=== PATIENT | male | born 1950 | race Caucasian/White ===

== ENCOUNTER 2021-04-15 10:20 | Day surgery (SDC) | payer MEDICARE, MEDICAID ==
[~2021-04-15] VITALS: Ht 177.8 cm; Wt 94.6 kg
[2021-04-15 10:48] VITALS: BP 153/78; PULSE 85; TEMP 98.9
[2021-04-15] MEDS ORDERED: PRINZIDE 25 MG-1 TAB PO (11:06)
[2021-04-15] MEDS ORDERED: LIPITOR 80MG80 MG PO (11:06)
[2021-04-15] MEDS ORDERED: MOTRIN 600600 MG/TAB PO (14:41)
[2021-04-15] MEDS ORDERED: NORCO 325 MG-51 TAB PO (14:42)
[2021-04-15 15:20] VITALS: BP 141/74; PULSE 63; TEMP 97.4
--- NOTE | 2021-04-15 15:20 | NUR ---
The patient arrived back to [place] [facility] from the recovery room at this time. The patient appears alert and oriented and denies any pain or nausea at this time. The patien agrees to try some cran/apple juice at this time. The patient denies wanting anything to eat at this time. The patient has lap sites to his abdomen that are covered with surgical glue and without redness or edema. The patient's friend, Mandy, was brought back to be at his bedside. Call light is within reach. Will continue to monitor the patient.
[2021-04-15 15:35] VITALS: BP 131/104; PULSE 72
--- NOTE | 2021-04-15 15:35 | NUR ---
The patient was attempting to get himself dressed while the dynamap was taking his blood pressure. The patient appears to be tolerating the juice well. Will continue to monitor the patient.
[2021-04-15 15:50] VITALS: BP 118/64; PULSE 63; TEMP 97.4
--- NOTE | 2021-04-15 15:50 | NUR ---
The patient ambulated to the bathroom with the stand by assistance of one nurse and appeared to tolerate the activity well. The patient reports voiding without difficulty and voices a desire to be discharged home.
--- NOTE | 2021-04-15 16:00 | NUR ---
Discharge instructions were reviewed with the patient at this time. He verbalized understanding and has no questions for the nurse at this time. The patient's IV to his right hand was removed and a pressue dressing was applied to the site. The patietn is dressed and ready to be escorted out.
--- NOTE | 2021-04-15 16:10 | NUR ---
The patient was escorted out via wheelchair to a private vehicle by LOVELY Garcia. The patient's belongings and discharge paperwork were sent with him. The patient's friend, Mandy, is presen to to drive the patient home.
== END 2021-04-15 16:10 | disposition home or self-care (01) ==
LOC: SDCO 10:20
DX: K40.90 Unilateral inguinal hernia, without obstruction or gangrene, not specified as recurrent (principal); I10 Essential (primary) hypertension; J44.9 Chronic obstructive pulmonary disease, unspecified; Z87.891 Personal history of nicotine dependence; Z79.899 Other long term (current) drug therapy
CPT/HCPCS: C1781; J0690; J1100; J2405; J2704; J2710; J3010; J7120